=== PATIENT | female | born 1980 | race Hispanic/Latino ===

== ENCOUNTER 2021-08-19 08:50 | Day surgery (SDC) | payer BC ==
[~2021-08-19] VITALS: Ht 172.7 cm; Wt 74.8 kg
[2021-08-19] VITALS (16 sets, daily range): BP systolic 106–128; BP diastolic 54–82
[2021-08-19 09:44] LABS: BASOPHILS % (AUTO) 0.8 % (0.0-5.0); EOSINOPHILS % (AUTO) 0.8 % (0.0-8.0); HEMATOCRIT 38.7 % (36-48); LYMPHOCYTES % (AUTO) 38.9 % (21.0-51.0); MEAN CORPUSCULAR HEMOGLOBIN 30.2 pg (27.0-33.0); MEAN CORPUSCULAR HGB CONC 34.1 g/dL (32.0-36.0); MEAN CORPUSCULAR VOLUME 88.6 fL (79-99); NEUTROPHILS % (AUTO) 52.3 % (40.0-77.0); PLATELET COUNT (AUTO) 260 K/uL (130-400); RED BLOOD CELL COUNT(AUTO) 4.37 MIL/uL (4.00-5.50); RED CELL DISTRIBUTION WIDTH 12.1 % (11.0-15.5); WHITE BLOOD COUNT (AUTO) 5.3 K/uL (4.8-10.8)
[2021-08-19] MEDS ORDERED: LACTATED RINGERS 1000ML 1,000 ML IV ONE (09:55)
[2021-08-19] MEDS ORDERED: CEFAZOLIN SODIUM 1 GM VIAL ONE (09:56)
[2021-08-19 09:57] LABS: CREATININE 0.6 mg/dL (0.5-1.5); POTASSIUM 4.1 mmol/L (3.5-5.1)
[2021-08-19] MEDS ORDERED: CEFAZOLIN SODIUM 1 GM VIAL IVP SCH (10:00)
[2021-08-19] MEDS ORDERED: LACTATED RINGERS 1000ML 1,000 ML IV SCH (10:00)
[2021-08-19] MEDS ORDERED: ESTR1TAB17 PO (10:01)
[2021-08-19] MEDS ORDERED: CELE200C PO (10:01)
[2021-08-19] MEDS ORDERED: LIDOCAINE PF 100MG/5ML (2%) SYRINGE 5ML ONE (10:53)
[2021-08-19] MEDS ORDERED: MIDAZOLAM HCL 1 MG/ML 2ML VIAL ONE (10:54)
[2021-08-19] MEDS ORDERED: PROPOFOL 10 MG/ML 20ML VIAL IV ONE (10:54)
[2021-08-19] MEDS ORDERED: ONDANSETRON 4MG INJ ONE (10:54)
[2021-08-19] MEDS ORDERED: ROCURONIUM 10MG/1ML SYR 10 MG/ML ML ONE (10:55)
[2021-08-19] MEDS ORDERED: FENTANYL CITRATE PF 50 MCG/1 ML 2ML VIAL ONE (11:22)
[2021-08-19] MEDS ORDERED: BUPIVACAINE/PF 0.5% 30ML VIAL ONE (11:35)
[2021-08-19] MEDS ORDERED: MEPERIDINE-PF 25 MG/ML SYG ONE (12:30)
== END 2021-08-19 13:50 | disposition home or self-care (01) ==
LOC: DAH 08:50
PROVIDERS: ATTEND Orthopaedic Surgery
DX: M22.42 Chondromalacia patellae, left knee (principal); M17.12 Unilateral primary osteoarthritis, left knee; M25.462 Effusion, left knee; Z20.822 Contact with and (suspected) exposure to COVID-19; Z79.899 Other long term (current) drug therapy
CPT/HCPCS: 29877; 36415; 80048; 85025; 87635; A4215 ×2; A4221 ×2; A4222 ×2; A4223 ×2; A4606; A4649 ×3; A4663 ×2; A4930; A5120; A6223; J0690; J2001; J2175; J2250; J2405; J2704; J3010; J3490; J7120